=== PATIENT | female | born 1990 | race Caucasian/White ===

== ENCOUNTER → 2017-02-26 12:47 | Outpatient (CLI) | payer OTHER ==
[~2017-02-26] VITALS: Ht 152.4 cm; Wt 63.5 kg
== END | disposition home or self-care (01) ==
LOC: PPHC 12:47
DX: H10.021 Other mucopurulent conjunctivitis, right eye (principal)

== ENCOUNTER 2018-10-17 18:37 | Emergency (ER) | payer OTHER ==
[~2018-10-17] VITALS: Ht 175.3 cm; Wt 61.2 kg
== END 2018-10-17 21:22 | disposition home or self-care (01) ==
LOC: ER 18:37
DX: K59.09 Other constipation (principal); R10.32 Left lower quadrant pain

== ENCOUNTER 2020-09-26 13:32 | Emergency (ER) | payer OTHER ==
[~2020-09-26] VITALS: Ht 175.3 cm; Wt 68.0 kg
[2020-09-26] MEDS ORDERED: ZITHROMAX200 MG PO (19:44)
== END 2020-09-26 19:55 | disposition home or self-care (01) ==
LOC: ER 13:32
DX: B34.9 Viral infection, unspecified (principal); B96.0 Mycoplasma pneumoniae [M. pneumoniae] as the cause of diseases classified elsewhere; Z20.822 Contact with and (suspected) exposure to COVID-19

== ENCOUNTER 2022-08-20 09:08 | Outpatient (CLI) | payer OTHER ==
[~2022-08-20 09:08] MED LIST: ZITHROMAX200 MG PO
[2022-08-20] MEDS ORDERED: PRENATAL TABLE1 EAC1 PO (09:48)
== END 2022-08-20 15:00 | disposition home or self-care (01) ==
LOC: OBS/DEL 09:08
PROVIDERS: ATTEND Specialist
DX: O36.8330 Maternal care for abnormalities of the fetal heart rate or rhythm, third trimester, not applicable or unspecified (principal); Z3A.37 37 weeks gestation of pregnancy

== ENCOUNTER 2022-08-31 13:00 | Inpatient (IN) | payer OTHER ==
[~2022-08-31] VITALS: Ht 175.3 cm; Wt 81.6 kg
[~2022-08-31 13:00] MED LIST changes: +PRENATAL TABLE1 EAC1 PO
== END 2022-09-12 15:04 | disposition home or self-care (01) | DRG 807 ==
LOC: OB/GYN 09-10 05:02 → LDR 09-10 05:02 → OB/GYN 09-10 12:33
PROVIDERS: ADMIT Specialist; ATTEND Specialist
PROC: 10E0XZZ Delivery of Products of Conception, External Approach (ICD-10-PCS; principal; 2022-09-10)
PROC: 3E033VJ Introduction of Other Hormone into Peripheral Vein, Percutaneous Approach (ICD-10-PCS; 2022-09-10)
PROC: 4A1HXCZ Monitoring of Products of Conception, Cardiac Rate, External Approach (ICD-10-PCS; 2022-09-10)
DX: O48.0 Post-term pregnancy (principal); Z37.0 Single live birth; Z3A.40 40 weeks gestation of pregnancy; Z20.822 Contact with and (suspected) exposure to COVID-19